=== PATIENT | male | born 1990 | race Caucasian/White ===

== ENCOUNTER 2017-06-03 19:39 | Emergency (ER) | payer MEDICAID, OTHER ==
--- NOTE | 2017-06-03 20:10 | UC ---
Throat Pain/Nasal Arpan HPI - HPI Summary HPI Summary: 27 year old male presents with sinus congestion and pressure. - History of Current Complaint Chief Complaint: UCRespiratory Stated Complaint: URI Time Seen by Provider: 06/03/17 20:10 Hx Obtained From: Patient Onset/Duration: Sudden Onset Severity: Moderate Pain Scale Used: 0-10 Numeric - 5 - Allergies/Home Medications Allergies/Adverse Reactions: Allergies Allergy/AdvReac Type Severity Reaction Status Date / Time Cefaclor [From Ceclor] Allergy Unknown Unknown Verified 06/03/17 20:10 Reaction Details PMH/Surg Hx/FS Hx/Imm Hx Previously Healthy: Yes - Surgical History Surgical History: Yes Surgery Procedure, Year, and Place: "Stomach surgery because they left a piece of umbilical cord inside" @ around 15 years old. Right ankle surgery - Family History Known Family History: Positive: Hypertension - Social History Alcohol Use: Daily Substance Use Type: None Smoking Status (MU): Former Smoker Review of Systems Constitutional: Negative Skin: Negative Eyes: Negative ENT: Nasal Discharge, Sinus Congestion, Sinus Pain/Tenderness Respiratory: Negative Cardiovascular: Negative Gastrointestinal: Negative Genitourinary: Negative Motor: Negative Neurovascular: Negative Musculoskeletal: Negative Neurological: Negative Psychological: Negative All Other Systems Reviewed And Are Negative: Yes Physical Exam Triage Information Reviewed: Yes Vital Signs Reviewed: Yes Eye Exam: Normal ENT: Positive: Pharyngeal erythema, Nasal congestion Dental Exam: Normal Neck exam: Normal Neck: Positive: 1 Respiratory Exam: Normal Cardiovascular Exam: Normal Abdominal Exam: Normal Musculoskeletal Exam: Normal Neurological Exam: Normal Psychological Exam: Normal Skin Exam: Normal Throat Pain/Nasal Course/Dx - Differential Dx/Diagnosis Provider Diagnoses: sinusitis Discharge - Discharge Plan Condition: Stable Disposition: HOME Prescriptions: Azithromyxin MARELY (NF) [Z-Marely (Zithromax) 250 mg tabs #6] 2 tab PO .TODAY, THEN 1 DAILY #6 tab Methylprednisolone [Medrol Dosepak 4 MG*] 4 mg PO .SEE MARELY INSTRUCTION #21 tab Pseudoephedrine HCl [Sudafed Nasal Decongestan] 30 mg PO Q8H PRN #30 tab PRN Reason: Congestion guaiFENesin/CODIEN 100MG-10MG* [Robitussin AC 100Mg-10Mg*] 5 ml PO Q8H PRN #120 ml MDD 15 ml PRN Reason: Cough Patient Education Materials: Sinusitis (ED) Referrals: Bon Boateng MD [Primary Care Provider] -
[2017-06-03 20:13] VITALS: BP 140/74
[2017-06-03] MEDS ORDERED: Pseudoephedrine TAB* 30 MG PO ONE (20:28)
[2017-06-03] MEDS ORDERED: Phenylephrine 0.5% NASAL* BTL BOTH NARES ONE (20:40)
== END 2017-06-03 21:04 | disposition home or self-care (01) ==
LOC: UCEAST 19:39
DX: J32.9 Chronic sinusitis, unspecified (principal)
CPT/HCPCS: 99212; A9270-GY; G0463

== ENCOUNTER 2017-09-25 19:36 | Emergency (ER) | payer OTHER ==
[2017-09-25 21:40] LABS: ABS Basophils 0 10^3/ul (0-0.2); ABS Eosinophils 0 10^3/ul (0-0.6); ABS Lymphocytes 0.6 10^3/ul (1.0-4.8); ABS Monocytes 0.6 10^3/ul (0-0.8); ABS Neutrophils 19.2 10^3/ul (1.5-7.7); ABS Nucleated RBC 0.1 10^3/ul; Eosinophil % 0.2 % (0-6); Hematocrit 61 % (42-52); Hemoglobin 21.6 g/dl (14.0-18.0); Lymphocyte % 2.9 % (25-47); Mean Corpuscular HGB Conc 35 g/dl (31-36); Mean Corpuscular Hemoglobin 33 pg (27-31); Mean Corpuscular Volume 92 fL (80-94); Mean Platelet Volume 10 um3 (7.4-10.4); Nucleated Red Blood Cells % 0.4; Platelet Count 215 10^3/ul (150-450); Red Blood Count 6.63 10^6/ul (4.0-5.4); Red Cell Distribution Width 14 % (10.5-15); White Blood Count 20.5 10^3/ul (3.5-10.8)
[2017-09-26] MEDS ORDERED: NS 0.9% 1000 ML* 1,000 ML IV ONE (00:22)
[2017-09-26] MEDS ORDERED: Metoclopramide IV* 5 MG/ML 2 ML VIAL IV SLOW PU ONE (00:22)
[2017-09-26 01:38] VITALS: BP 143/76
--- NOTE | 2017-09-26 03:50 | ED ---
Thompson Odonnell Thomas, scribed for Hillary Carey MD on 09/26/17 at 0025 . GI/ HPI - HPI Summary HPI Summary: The patient is a 27 year old male presenting with abdominal pain, diarrhea, and vomiting that began yesterday at 10:00 (14 hours ago). He had watery diarrhea before the vomiting began. He is on Alprazolam, omeprazole, and Wellbutrin. He denies eating any suspect foods recently. - History of Current Complaint Chief Complaint: EDAbdPain Time Seen by Provider: 09/26/17 00:15 Stated Complaint: VOMITING/PANIC ATTACK Hx Obtained From: Patient Onset/Duration: Started Hours Ago - 14, Resolved Timing: Constant Severity: Moderate Current Severity: Moderate Pain Intensity: 8 Associated Signs and Symptoms: Positive: Vomiting, Diarrhea, Abdominal Pain Aggravating Factor(s): Nothing Alleviating Factor(s): Nothing - Allergy/Home Medications Allergies/Adverse Reactions: Allergies Allergy/AdvReac Type Severity Reaction Status Date / Time MS Cefaclor [From [facility]] Allergy Unknown Unknown Verified 06/03/17 20:10 Reaction Details PMH/Surg Hx/FS Hx/Imm Hx Sensory History: Reports: Hx Contacts or Glasses Opthamlomology History: Reports: Hx Contacts or Glasses EENT History: Denies: Hx Deafness - Surgical History Surgery Procedure, Year, and Place: "Stomach surgery because they left a piece of umbilical cord inside" @ around 15 years old. Right ankle surgery - Immunization History Date of Tetanus Vaccine: Unknown Date of Influenza Vaccine: None Infectious Disease History: No Infectious Disease History: Reports: History Other Infectious Disease - chlamydia Denies: Traveled Outside the [place] in Last 30 Days - Family History Known Family History: Positive: Hypertension - Social History Alcohol Use: Daily Hx Substance Use: No Substance Use Type: Reports: None Hx Tobacco Use: Yes Smoking Status (MU): Former Smoker Review of Systems Negative: Fever Positive: Abdominal Pain, Vomiting, Diarrhea All Other Systems Reviewed And Are Negative: Yes Physical Exam - Summary Physical Exam Summary: VITAL SIGNS: Reviewed. GENERAL: Patient is a well-developed and nourished MALE who is lying comfortable in the stretcher. Patient is not in any acute respiratory distress. HEAD AND FACE: No signs of trauma. No ecchymosis, hematomas or skull depressions. No sinus tenderness. EYES: PERRLA, EOMI x 2, No injected conjunctiva, no nystagmus. EARS: Hearing grossly intact. Ear canals and tympanic membranes are within normal limits. MOUTH: Oropharynx within normal limits. NECK: Supple, trachea is midline, no adenopathy, no JVD, no carotid bruit, no c- spine tenderness, neck with full ROM. CHEST: Symmetric, no tenderness at palpation LUNGS: Clear to auscultation bilaterally. No wheezing or crackles. CVS: Regular rate and rhythm, S1 and S2 present, no murmurs or gallops appreciated. ABDOMEN: Soft, non-tender. No signs of distention. No rebound no guarding, and no masses palpated. Bowel sounds are hyperactive. EXTREMITIES: FROM in all major joints, no edema, no cyanosis or clubbing. NEURO: Alert and oriented x 3. No acute neurological deficits. Speech is normal and follows commands. SKIN: Dry and warm Triage Information Reviewed: Yes Vital Signs On Initial Exam: Initial Vitals Temp Pulse Resp BP Pulse Ox 98.0 F 121 18 120/69 96 09/25/17 19:45 09/25/17 19:45 09/25/17 19:45 09/25/17 19:45 09/25/17 19:45 Vital Signs Reviewed: Yes Diagnostics - Vital Signs Vital Signs Temp Pulse Resp BP Pulse Ox 09/26/17 00:21 98.4 F 122 16 132/88 95 09/25/17 23:04 97.6 F 126 20 139/88 97 09/25/17 19:45 98.0 F 121 18 120/69 96 - Laboratory Lab Results: Lab Results 09/25/17 09/25/17 Range/Units 21:20 21:20 WBC 20.5 H (3.5-10.8) 10^3/ul RBC 6.63 H (4.0-5.4) 10^6/ul Hgb 21.6 H (14.0-18.0) g/dl Hct 61 H (42-52) % MCV 92 (80-94) fL MCH 33 H (27-31) pg MCHC 35 (31-36) g/dl RDW 14 (10.5-15) % Plt Count 215 (150-450) 10^3/ul MPV 10 (7.4-10.4) um3 Neut % (Auto) 93.8 H (38-83) % Lymph % (Auto) 2.9 L (25-47) % Hall % (Auto) 3.0 (1-9) % Eos % (Auto) 0.2 (0-6) % Baso % (Auto) 0.1 (0-2) % Absolute Neuts (auto) 19.2 H (1.5-7.7) 10^3/ul Absolute Lymphs (auto) 0.6 L (1.0-4.8) 10^3/ul Absolute Monos (auto) 0.6 (0-0.8) 10^3/ul Absolute Eos (auto) 0 (0-0.6) 10^3/ul Absolute Basos (auto) 0 (0-0.2) 10^3/ul Absolute Nucleated RBC 0.1 10^3/ul Nucleated RBC % 0.4 Sodium 135 (133-145) mmol/L Potassium 4.2 (3.5-5.0) mmol/L Chloride 101 (101-111) mmol/L Carbon Dioxide 20 L (22-32) mmol/L Anion Gap 14 H (2-11) mmol/L BUN 15 (6-24) mg/dL Creatinine 1.04 (0.67-1.17) mg/dL Est GFR ( Amer) 109.4 (>60) Est GFR (Non-Af Amer) 85.0 (>60) BUN/Creatinine Ratio 14.4 (8-20) Glucose 87 (70-100) mg/dL Calcium 10.2 (8.6-10.3) mg/dL Total Bilirubin 2.50 H (0.2-1.0) mg/dL AST 20 (13-39) U/L ALT 15 (7-52) U/L Alkaline Phosphatase 68 (34-104) U/L C-Reactive Protein 5.49 H (< 5.00) mg/L Total Protein 8.3 (6.4-8.9) g/dL Albumin 5.5 H (3.2-5.2) g/dL Globulin 2.8 (2-4) g/dL Albumin/Globulin Ratio 2.0 (1-3) Amylase 28 L (29-103) U/L Lipase < 10 L (11.0-82.0) U/L Result Diagrams: 09/25/17 21:20 09/25/17 21:20 Lab Statement: Any lab studies that have been ordered have been reviewed, and results considered in the medical decision making process. Re-Evaluation - Re-Evaluation First Eval Re-Evaluation Time: :27 Change: Improved Comment: He is not in pain, has no vomiting, and is not tender. GIGU Course/Dx - Course Assessment/Plan: The patient is a 27 year old male presenting with abdominal pain, diarrhea, and vomiting that began yesterday at 10:00 (14 hours ago). He does not have abdominal tenderness. In the ED course the patient was given IV fluids and Reglan. On re-evaluation, the patient is feeling better. He is not in pain, has no vomiting, and is not tender. He will be discharged home to follow up with primary care. - Diagnoses Provider Diagnoses: Gastroenteritis Discharge - Discharge Plan Condition: Stable Disposition: HOME Patient Education Materials: Gastroenteritis (ED) Referrals: Bon Boateng MD [Primary Care Provider] - 3 Days Additional Instructions: Follow up with your primary care physician in three days. Return to the emergency department for any new or worsening symptoms. The documentation as recorded by the Thompson treadwell Thomas accurately reflects the service I personally performed and the decisions made by me, Hillary Carey MD.
== END 2017-09-26 01:37 | disposition home or self-care (01) ==
LOC: ED 19:36
DX: K52.9 Noninfective gastroenteritis and colitis, unspecified (principal); R10.9 Unspecified abdominal pain; R11.10 Vomiting, unspecified; R19.7 Diarrhea, unspecified; Z87.891 Personal history of nicotine dependence
CPT/HCPCS: 36415; 80053; 82150; 83690; 85025; 86140; 96361; 96374; 99282; J2765

== ENCOUNTER 2018-09-03 20:48 | Emergency (ER) | payer OTHER ==
[2018-09-03] MEDS ORDERED: Lidocaine/Epineph/Tetraca GEL* 3 ML GEL IN SYR TOPICAL ONE (21:18)
[2018-09-03] MEDS ORDERED: Tetan/Diph/Pertus SYR(Tdap)* 0.5 ML SYR(BOOSTRIX) use SYR IM ONE (21:23)
[2018-09-03] MEDS ORDERED: Sulfamethox/Trimethoprim DS 800/160* TAB PO ONE (21:48)
--- NOTE | 2018-09-03 21:52 | ED ---
Laceration/Wound HPI - HPI Summary HPI Summary: Laceration to left forearm from broken glass plate. Denies any other symptoms, injury or pain. Being controlled. Tetanus status unknown. - History of Current Complaint Stated Complaint: LAC TO LEFT ARM Time Seen by Provider: 09/03/18 21:17 Hx Obtained From: Patient Mechanism of Injury: Sharp/Blunt Trauma Onset/Duration: Sudden Onset Aggravating: Nothing Alleviating: Nothing Onset Severity: Moderate Current Severity: Moderate Pain Intensity: 4 Pain Scale Used: 0-10 Numeric Associated Signs & Symptoms: Negative - Allergy/Home Medications Allergies/Adverse Reactions: Allergies Allergy/AdvReac Type Severity Reaction Status Date / Time [facility] [[facility] Allergy Unknown Verified 09/03/18 20:54 Reaction Details PMH/Surg Hx/FS Hx/Imm Hx Endocrine/Hematology History: Denies: Hx Anticoagulant Therapy Respiratory History: Reports: Hx Asthma, Hx Chronic Obstructive Pulmonary Disease (COPD) History: Denies: Hx Dialysis Sensory History: Reports: Hx Contacts or Glasses Denies: Hx Deafness Opthamlomology History: Reports: Hx Contacts or Glasses Neurological History: Denies: Hx Dementia Psychiatric History: Denies: Hx Autism - Surgical History Surgery Procedure, Year, and Place: "Stomach surgery because they left a piece of umbilical cord inside" @ around 15 years old. Right ankle surgery - Immunization History Date of Tetanus Vaccine: unknown Date of Influenza Vaccine: None Infectious Disease History: No Infectious Disease History: Reports: History Other Infectious Disease - chlamydia Denies: Traveled Outside the [place] in Last 30 Days - Family History Known Family History: Positive: Hypertension - Social History Alcohol Use: None Hx Substance Use: No Substance Use Type: Reports: None Hx Tobacco Use: Yes Smoking Status (MU): Light Every Day Tobacco Smoker Review of Systems Constitutional: Negative Eyes: Negative ENT: Negative Cardiovascular: Negative Respiratory: Negative Gastrointestinal: Negative Genitourinary: Negative Musculoskeletal: Negative Skin: Other Neurological: Negative Psychological: Normal All Other Systems Reviewed And Are Negative: Yes Physical Exam - Summary Physical Exam Summary: Laceration to dorsal surface of left forearm. PMS intact distally. Triage Information Reviewed: Yes Vital Signs On Initial Exam: Initial Vitals Temp Pulse Resp BP Pulse Ox 98.3 F 104 16 136/80 97 09/03/18 20:50 09/03/18 20:50 09/03/18 20:50 09/03/18 20:50 09/03/18 20:50 Vital Signs Reviewed: Yes Appearance: Positive: Well-Appearing Skin: Positive: Warm Head/Face: Positive: Normal Head/Face Inspection Eyes: Positive: Normal Neck: Positive: Supple Respiratory/Lung Sounds: Positive: Clear to Auscultation Cardiovascular: Positive: Normal Abdomen Description: Positive: Nontender Musculoskeletal: Positive: Normal Neurological: Positive: Normal Psychiatric: Positive: Normal AVPU Assessment: Alert - Krystle Coma Scale Best Eye Response: 4 - Spontaneous Best Motor Response: 6 - Obeys Commands Best Verbal Response: 5 - Oriented Coma Scale Total: 15 Procedures - Laceration/Wound Repair 1 Location: upper extremity Description: Linear Anesthesia: Local, 1.0% Length, Depth and Shape: 4cm x 1cm Betadine Prep?: Yes Irrigated w/ Saline (ccs): 200 Laceration/Wound Explored: clean Number of Sutures: 6 - 4.0 ethilon Layer Closure?: Yes Sterile Dressing Applied?: Yes Diagnostics - Vital Signs Vital Signs Temp Pulse Resp BP Pulse Ox 09/03/18 20:50 98.3 F 104 16 136/80 97 - Laboratory Lab Statement: Any lab studies that have been ordered have been reviewed, and results considered in the medical decision making process. Laceration Repair Course/Dx - Course Course Of Treatment: Laceration to left forearm from broken glass plate. Denies any other symptoms, injury or pain. Being controlled. Tetanus status unknown. Physical exam:Laceration to dorsal surface of left forearm. PMS intact distally. Laceration sutured. Rx for Bactrim. - Clinical Impression Provider Diagnoses: Laceration Discharge - Sign-Out/Discharge Documenting (check all that apply): Patient Departure - Discharge Plan Condition: Stable Disposition: HOME Prescriptions: Sulfamethox/Trimethoprim DS* [Bactrim DS 800/160 TAB*] 1 tab PO BID 5 Days #10 tab Patient Education Materials: Care For Your Stitches (ED), Laceration (ED) Referrals: Andreas Aranda NP [Primary Care Provider] - Additional Instructions: Sutures out in 10 days. Take antibiotics as directed. May wash with warm running water and soap. Do not submerge underwater as and swelling. Return to the ED for any new or worsening symptoms - Billing Disposition and Condition Condition: STABLE Disposition: Home
[2018-09-03 22:25] VITALS: BP 132/74
== END 2018-09-03 22:24 | disposition home or self-care (01) ==
LOC: ED 20:48
DX: S51.812A Laceration without foreign body of left forearm, initial encounter (principal); W25.XXXA Contact with sharp glass, initial encounter; Y92.9 Unspecified place or not applicable; Z23 Encounter for immunization; J44.9 Chronic obstructive pulmonary disease, unspecified; Z72.0 Tobacco use
CPT/HCPCS: 12002; 90471; 90715; 99282; A9270-GY

== ENCOUNTER 2019-02-09 14:28 | Emergency (ER) | payer OTHER ==
--- NOTE | 2019-02-09 18:09 | ED ---
Abdominal Pain/Male - HPI Summary HPI Summary: This patient is a 29 year old male presenting to [facility] with a chief complaint of n/v/d since this morning. The patient reports diffuse sharp abdominal pain that has resolved. The patient states he has started to feel a little better. He states he had normal urination today, although he states he has been somewhat dehydrated. He thinks the abdominal pain might have been due to gas. - History of Current Complaint Chief Complaint: EDAbdPain Stated Complaint: STOMACH BUG/SHARP PAINS IN STOMACH PER PT Time Seen by Provider: 02/09/19 18:01 Hx Obtained From: Patient Pain Intensity: 8 Pain Scale Used: 0-10 Numeric Location: Diffuse Associated Signs And Symptoms: Positive: Nausea, Vomiting, Diarrhea - Allergies/Home Medications Allergies/Adverse Reactions: Allergies Allergy/AdvReac Type Severity Reaction Status Date / Time cefaclor [From [facility]] Allergy Unknown Verified 09/03/18 20:54 Reaction Details Home Medications: Home Medications Penicillin VK 500 MG TAB(NF) [Penicillin VK 500 mg Tab] 500 mg PO QID 02/09/19 [ History Confirmed 02/09/19] PMH/Surg Hx/FS Hx/Imm Hx Endocrine/Hematology History: Denies: Hx Anticoagulant Therapy Respiratory History: Reports: Hx Asthma, Hx Chronic Obstructive Pulmonary Disease (COPD) History: Denies: Hx Dialysis Sensory History: Reports: Hx Contacts or Glasses Denies: Hx Deafness Opthamlomology History: Reports: Hx Contacts or Glasses Neurological History: Denies: Hx Dementia Psychiatric History: Denies: Hx Autism - Surgical History Surgery Procedure, Year, and Place: "Stomach surgery because they left a piece of umbilical cord inside" @ around 15 years old. Right ankle surgery - Immunization History Date of Tetanus Vaccine: unknown Date of Influenza Vaccine: None Infectious Disease History: No Infectious Disease History: Reports: History Other Infectious Disease - chlamydia Denies: Traveled Outside the [place] in Last 30 Days - Family History Known Family History: Positive: Hypertension - Social History Alcohol Use: None Hx Substance Use: No Substance Use Type: Reports: None Hx Tobacco Use: Yes Smoking Status (MU): Light Every Day Tobacco Smoker Review of Systems Negative: Fever Positive: Abdominal Pain, Vomiting, Diarrhea, Nausea All Other Systems Reviewed And Are Negative: Yes Physical Exam - Summary Physical Exam Summary: Appearance: The patient is well-nourished in no acute distress and in no acute pain. Skin: The skin is warm and dry and skin color reflects adequate perfusion. HEENT: The head is normocephalic and atraumatic. The pupils are equal and reactive. The conjunctivae are clear and without drainage. Nares are patent and without drainage. Mouth reveals moist mucous membranes and the throat is without erythema and exudate. The external ears are intact. The ear canals are patent and without drainage. The tympanic membranes are intact. Neck: The neck is supple with full range of motion and non-tender. There are no carotid bruits. There is no neck vein distension. Respiratory: Chest is non-tender. Lungs are clear to auscultation and breath sounds are symmetrical and equal. Cardiovascular: Heart is regular rate and rhythm. There is no murmur or rub auscultated. There is no peripheral edema and pulses are symmetrical and equal. Abdomen: The abdomen is soft and non-tender. There are normal bowel sounds heard in all four quadrants and there is no organomegaly palpated. Hyperactive bowel sounds. Musculoskeletal: There is no back tenderness noted. Extremities are non-tender with full range of motion. There is good capillary refill. There is no peripheral edema or calf tenderness elicited. Neurological: Patient is alert and oriented to person, place and time. The patient has symmetrical motor strength in all four extremities. Cranial nerves are grossly intact. Deep tendon reflexes are symmetrical and equal in all four extremities. Psychiatric: The patient has an appropriate affect and does not exhibit any anxiety or depression. Triage Information Reviewed: Yes Vital Signs On Initial Exam: Initial Vitals Temp Pulse Resp BP Pulse Ox 97.6 F 107 18 144/85 96 02/09/19 14:31 02/09/19 14:31 02/09/19 14:31 02/09/19 14:31 02/09/19 14:31 Vital Signs Reviewed: Yes Diagnostics - Vital Signs Vital Signs Temp Pulse Resp BP Pulse Ox 02/09/19 16:20 98.1 F 98 18 145/86 98 02/09/19 14:31 97.6 F 107 18 144/85 96 - Laboratory Lab Statement: Any lab studies that have been ordered have been reviewed, and results considered in the medical decision making process. Abdominal Pain Male Course/Dx - Course Course Of Treatment: Mr. Marsh improved while he was here and by the time I saw him only had some mild nausea. His laboratory workup was negative. I gave him some Zofran ODT and he improved and requested discharge. - Diagnoses Provider Diagnoses: Gastroenteritis Discharge - Sign-Out/Discharge Documenting (check all that apply): Patient Departure - Discharge Patient Received Moderate/Deep Sedation with Procedure: No - Discharge Plan Condition: Stable Disposition: HOME Patient Education Materials: Gastroenteritis (ED) Referrals: Andreas Aranda, PRODUCT ENGINEER [Primary Care Provider] - Additional Instructions: Return to ED with any new or worsening symptoms. - Billing Disposition and Condition Condition: STABLE Disposition: Home - Attestation Statements Document Initiated by Claudiae: Yes Documenting Scribe: Johny Phipps Provider For Whom Madeleine is Documenting (Include Credential): Tu Smith MD Scribe Attestation: I, Jhony Phipps, scribed for Tu Smith MD on 02/09/19 at 3150. Scribe Documentation Reviewed: Yes Provider Attestation: The documentation as recorded by the Johny treadwell accurately reflects the service I personally performed and the decisions made by me, Tu Smith MD Status of Scribe Document: Viewed
[2019-02-09] MEDS ORDERED: Ondansetron ODT TAB* 4 MG PO ONE (18:18)
[2019-02-09 20:14] VITALS: BP 118/81
== END 2019-02-09 20:14 | disposition home or self-care (01) ==
LOC: ED 14:28
DX: K52.9 Noninfective gastroenteritis and colitis, unspecified (principal); J44.9 Chronic obstructive pulmonary disease, unspecified; F17.210 Nicotine dependence, cigarettes, uncomplicated; Z88.3 Allergy status to other anti-infective agents
CPT/HCPCS: 99282; A9270-GY